=== PATIENT | male | born 1960 | race Caucasian/White ===

== ENCOUNTER → 2016-05-10 | Outpatient (CLI) | payer BC | END | disposition home or self-care (01) | LOC: C.RDSM 15:10 | PROVIDERS: ATTEND Family Medicine | DX: M25.511 Pain in right shoulder (principal) ==

== ENCOUNTER → 2016-07-30 | Outpatient (CLI) | payer BC ==
--- NOTE | 2016-07-30 12:03 | DIAGNOSTIC IMAGING REPORT ---
MRI OF THE RIGHT SHOULDER CLINICAL HISTORY: Right shoulder pain. COMPARISON STUDY: Radiographs of the right shoulder dated 05/10/2016. TECHNIQUE: MRI of the right shoulder was performed utilizing various T1 and T2 weighted sequences in the axial, sagittal, coronal planes. IV contrast was not administered for this examination. FINDINGS: Rotator cuff: There is mild tendinopathy of the supraspinatous tendon. A tiny full-thickness rim rent tear is suggested on sagittal image #8. The infraspinatus tendon is preserved. The teres minor and subscapularis tendons are intact. There is trace subacromial or and subdeltoid bursal fluid. Productive degenerative changes seen at the acromioclavicular joint. Biceps tendon: The long head of the biceps tendon is normal in signal intensity and located within the bicipital groove. The anchor is maintained. Labrum: A small SLAP tear is suspected in the glenoid labrum. Shoulder joint: There is no joint effusion. The articular cartilage over the glenoid is well maintained. Normal marrow signal intensity is preserved of the visualized osseous structures. Musculature and soft tissues: The musculature of the shoulder is normal in bulk and signal intensity. No atrophy is seen. IMPRESSION: 1. Suspect a tiny full-thickness rim rent tear of the supraspinatus tendon. 2. The remainder of the rotator cuff is intact, as is the long head of the biceps tendon. 3. Suspect a small SLAP tear of the glenoid labrum. Electronically signed by: Geoff De La Garza M.D. 07/30/2016 12:01 PM Dictated Date/Time: 07/30/2016 11:55 AM
== END | disposition home or self-care (01) ==
LOC: C.MRI 10:38
PROVIDERS: ATTEND Family Medicine
DX: M25.511 Pain in right shoulder (principal)